=== PATIENT | male | born 1965 ===

== ENCOUNTER 2020-12-18 08:57 | Day surgery (SDC) | payer BC ==
[~2020-12-18] VITALS: Ht 177.8 cm; Wt 88.3 kg
[2020-12-18] VITALS (10 sets, daily range): BP systolic 116–1303; BP diastolic 75–94; PULSE 58–85; TEMP 97.8
[2020-12-18 09:52] LABS: MEAN CELL VOLUME 96 fl (80.0-100.0); MEAN CORPUSCULAR HEMOGLOBIN 31 pg (27.0-31.0); MEAN CORPUSCULAR HGB CONC 33 g/dl (33.0-37.0); MEAN PLATELET VOLUME 9.3 fl (7.4-10.4); PLATELET COUNT 292 K/mm3 (130-400); REDCELL DISTRIBUTION WIDTH-CV 13.1 % (11.5-14.5)
[2020-12-18 09:59] LABS: CALCIUM 9.3 mg/dL (8.4-10.2); CREATININE, serum 0.77 (0.66-1.25); POTASSIUM 4.5 mmol/L (3.4-5.0)
[2020-12-18] MEDS ORDERED: NORCO 325 MG-101 TAB PO (10:08)
[2020-12-18] MEDS ORDERED: ASPIRIN E.C. 8181 MG PO (10:09)
[2020-12-18 10:10] LABS: PROTHROMBIN TIME 11.5 SECONDS (9.7-12.8)
[2020-12-18] MEDS ORDERED: NEURONTIN300 MG/CAP PO (10:10)
[2020-12-18] MEDS ORDERED: CRESTOR40 MG PO (10:11)
[2020-12-18] MEDS ORDERED: TOPROL XL 25MG25 MG PO (10:12)
[2020-12-18] MEDS ORDERED: NORVASC2.5 MG PO (10:12)
[2020-12-18 10:13] LABS: PARTIAL THROMBOPLASTIN TIME 31.7 SECONDS (26.0-37.0)
[2020-12-18] MEDS ORDERED: XANAX 1MG1 MG PO (10:13)
[2020-12-18] MEDS ORDERED: FLEXERIL 1010 MG/TAB PO (10:13)
[2020-12-18] MEDS ORDERED: NATURAL E400 IU PO (10:14)
--- NOTE | 2020-12-18 11:45 | NUR ---
Pt is back from [employer]. Dr. Ferrell has been back in to discuss test results and poc with and patient. Pt doing well, he is awake and alert, pwd, NSR on monitor. telemetry employed as ordered. TR band to rt wrist, cms intact distal. EKG obtained. Pt requested his normal pain med for 8/10 low back and neck pain. Verbal order received from Dr. Ferrell to administer norco 10/325 x1 to pt. Pt able to void using urinal with no problem. Lunch ordered. call light in reach and at bs. No concerns at this time, wctm.
--- NOTE | 2020-12-18 14:30 | NUR ---
Pt has done well during his recovery. TR band was deflated without incident, site dressed with bandaid, folded 2x2, coban dressing. CMS intact distal. Pt has been ambulatory with steady gait. I have reviewed dc/fu instructions wtih pt and who verbalize understanding. Written copies of instructions were sent home with pt. IV was dc'd wt cath intact. PT is escorted to exit via wheelchair.
== END 2020-12-18 16:12 | disposition home or self-care (01) ==
LOC: COL.CAR 08:57
PROVIDERS: Internal Medicine Cardiovascular Disease
DX: R06.00 Dyspnea, unspecified (principal); R00.0 Tachycardia, unspecified; R94.39 Abnormal result of other cardiovascular function study; I34.0 Nonrheumatic mitral (valve) insufficiency; E78.5 Hyperlipidemia, unspecified; Z79.82 Long term (current) use of aspirin; Z79.891 Long term (current) use of opiate analgesic; Z20.822 Contact with and (suspected) exposure to COVID-19; Z79.899 Other long term (current) drug therapy; Z83.3 Family history of diabetes mellitus; Z82.49 Family history of ischemic heart disease and other diseases of the circulatory system
CPT/HCPCS: J1644; J2250; J3010; Q9967